=== PATIENT | male | born 1970 | race Native Hawaiian/Other Pacific Islander ===

== ENCOUNTER 2016-09-22 22:30 | Observation (INO) | payer OTHER ==
[~2016-09-22] VITALS: Ht 182.9 cm; Wt 88.5 kg
[2016-09-22 22:44] VITALS: BP 188/108; TEMP 98.5
[2016-09-23 00:17] LABS: SODIUM 139 mmol/L (136-145)
[2016-09-23 00:27] LABS: PLATELET COUNT 241 K/uL (142-355)
[2016-09-23 04:25] VITALS: BP 143/89; TEMP 98.1; Ht 182.9 cm; Wt 88.5 kg
[2016-09-23 08:00] VITALS: BP 113/73; TEMP 97.9
[2016-09-23 12:00] VITALS: BP 121/78; TEMP 98.1
[2016-09-23] MEDS ORDERED: ROXICODONE15 M1 PO ×2 (13:48→13:54)
[2016-09-23] MEDS ORDERED: ALPR0.5T24 PO (13:49)
[2016-09-23] MEDS ORDERED: GABA300C2 PO (13:50)
[2016-09-23] MEDS ORDERED: CYCL10TA35 PO (13:51)
[2016-09-23] MEDS ORDERED: BENTYL10 MG PO (13:52)
[2016-09-23 16:00] VITALS: BP 121/70; TEMP 98.1
[2016-09-23 16:34] LABS: SODIUM 134 mmol/L (136-145)
[2016-09-23 20:00] VITALS: BP 108/67; TEMP 97.9
[2016-09-23 23:57] VITALS: BP 104/62; TEMP 97.6
[2016-09-24 04:00] VITALS: BP 109/66; TEMP 97.8
[2016-09-24 07:20] LABS: POTASSIUM 4.1 mmol/L (3.6-5.2); SODIUM 138 mmol/L (136-145)
[2016-09-24 08:00] VITALS: BP 107/71; TEMP 97.6
[2016-09-24 12:00] VITALS: BP 168/87; TEMP 97.6
[2016-09-24 12:48] LABS: POTASSIUM 3.8 mmol/L (3.6-5.2); SODIUM 135 mmol/L (136-145)
[2016-09-24 12:49] LABS: PLATELET COUNT 207 K/uL (142-355)
== END 2016-09-24 17:45 | disposition home or self-care (01) ==
LOC: ED 22:30 → MED/SURG 09-23 02:45
PROVIDERS: Student in an Organized Health Care Education/Training Program
PROC: 0FT44ZZ Resection of Gallbladder, Percutaneous Endoscopic Approach (ICD-10-PCS; principal; 2016-09-24)
DX: K80.10 Calculus of gallbladder with chronic cholecystitis without obstruction (principal); I10 Essential (primary) hypertension; K21.9 Gastro-esophageal reflux disease without esophagitis
CPT/HCPCS: 36415; 80048; 80053; 82150; 83690; 83735; 85027; 96374; 99220; 99284; G0378; J0330; J0744; J1170; J2001; J2250; J2405; J2704; J2710; J3010; J3490; Q9963

== ENCOUNTER 2016-09-29 19:28 | Emergency (ER) | payer OTHER ==
[~2016-09-29] VITALS: Ht 180.3 cm; Wt 88.5 kg
[~2016-09-29 19:28] MED LIST: ALPR0.5T24 PO; BENTYL10 MG PO; CYCL10TA35 PO; GABA300C2 PO; ROXICODONE15 M1 PO
[2016-09-29] MEDS ORDERED: ROXICODONE15 M1 PO (19:47)
[2016-09-29 20:41] LABS: PLATELET COUNT 268 K/uL (142-355)
[2016-09-29 20:50] LABS: SODIUM 134 mmol/L (136-145)
[2016-09-29 21:15] VITALS: BP 136/70; TEMP 98.4
== END 2016-09-29 21:17 | disposition home or self-care (01) ==
LOC: ED 19:28
DX: R10.84 Generalized abdominal pain (principal); Z98.890 Other specified postprocedural states
CPT/HCPCS: 80053; 85027; 99283

== ENCOUNTER 2016-11-27 22:27 | Emergency (ER) | payer OTHER ==
[~2016-11-27] VITALS: Ht 180.3 cm; Wt 82.6 kg
[2016-11-27 22:52] VITALS: BP 188/139; TEMP 99.1
== END 2016-11-27 23:15 | disposition left against medical advice (07) ==
LOC: ED 22:27
DX: G89.29 Other chronic pain (principal); R10.84 Generalized abdominal pain
CPT/HCPCS: 99281

== ENCOUNTER 2016-12-01 17:06 | Outpatient (CLI) | payer OTHER | END 2016-12-01 18:06 | disposition home or self-care (01) | LOC: RAD 17:06 | DX: R10.31 Right lower quadrant pain (principal); R11.0 Nausea; R50.9 Fever, unspecified | CPT/HCPCS: Q9963 ==

== ENCOUNTER 2016-12-02 11:03 | Observation (INO) | payer OTHER ==
[~2016-12-02] VITALS: Ht 180.3 cm; Wt 79.1 kg
[2016-12-02] VITALS (10 sets, daily range): BP systolic 107–152; BP diastolic 52–94; TEMP 97–98; Ht 180.3 cm; Wt 79.1 kg
[2016-12-02 12:45] LABS: PLATELET COUNT 249 K/uL (142-355)
[2016-12-02 12:58] LABS: POTASSIUM 3.8 mmol/L (3.6-5.2); SODIUM 137 mmol/L (136-145)
[2016-12-03] VITALS: BP 140/76; TEMP 97.5
[2016-12-03 04:00] VITALS: BP 126/79; TEMP 98.2
[2016-12-03 06:39] LABS: PLATELET COUNT 237 K/uL (142-355)
[2016-12-03 08:00] VITALS: BP 112/57; TEMP 98.1
[2016-12-03 12:00] VITALS: BP 115/54; TEMP 98
== END 2016-12-03 16:30 | disposition home or self-care (01) ==
LOC: MED/SURG 11:03
PROVIDERS: Student in an Organized Health Care Education/Training Program
PROC: 0DTJ4ZZ Resection of Appendix, Percutaneous Endoscopic Approach (ICD-10-PCS; principal; 2016-12-02)
DX: K35.80 Unspecified acute appendicitis (principal)
CPT/HCPCS: 36415; 80053; 85027; 93005; 96365; 96366; 96375; 99220; G0378; G0379; J0132; J0744; J1170; J1644; J2704; J2710; J3475; J3490; Q9963

== ENCOUNTER 2018-02-11 15:13 | Outpatient (CLI) | payer OTHER | END 2018-02-11 20:13 | disposition home or self-care (01) | LOC: CT 15:13 | DX: I10 Essential (primary) hypertension (principal); R51 Headache; H53.8 Other visual disturbances; R42 Dizziness and giddiness; H57.13 Ocular pain, bilateral ==

== ENCOUNTER 2018-03-29 15:19 | Outpatient (CLI) | payer OTHER ==
[2018-03-29 16:34] LABS: PLATELET COUNT 225 K/uL (142-355)
[2018-03-29 16:51] LABS: POTASSIUM 3.2 mmol/L (3.6-5.2)
== END 2018-03-29 22:04 | disposition home or self-care (01) ==
LOC: RAD 15:19
PROVIDERS: Nurse Practitioner Family
DX: R39.89 Other symptoms and signs involving the genitourinary system (principal); N50.89 Other specified disorders of the male genital organs; R39.11 Hesitancy of micturition; F41.1 Generalized anxiety disorder
CPT/HCPCS: 36415; 80053; 84153; 84443; 85027

== ENCOUNTER 2019-01-27 10:42 | Emergency (ER) | payer OTHER ==
[~2019-01-27] VITALS: Ht 175.3 cm; Wt 92.1 kg
[2019-01-27 10:49] VITALS: TEMP 97.7
[2019-01-27 11:48] VITALS: BP 144/84
== END 2019-01-27 11:48 | disposition home or self-care (01) ==
LOC: ED 10:42
DX: M54.89 Other dorsalgia (principal); G89.29 Other chronic pain; Z87.828 Personal history of other (healed) physical injury and trauma; Z79.891 Long term (current) use of opiate analgesic
CPT/HCPCS: 93005; 96372; 99282; J1885